=== PATIENT | female | born 1990 | race Caucasian/White ===

== ENCOUNTER 2021-05-16 12:14 | Emergency (ER) | payer OTHER ==
[2021-05-16 12:23] VITALS: BP 110/70; PULSE 89; TEMP 98.4; BMI 31.8
[2021-05-17 23:07] LABS: SARS-CoV-2 NAA Detected (Not Detected)
== END 2021-05-16 15:31 | disposition home or self-care (01) ==
LOC: JER 12:14
DX: U07.1 COVID-19 (principal); R05.1 Acute cough; R09.81 Nasal congestion
CPT/HCPCS: 71045-TC-FY; 87804; 99284-25; C9803; U0003; U0005